=== PATIENT | male | born 1960 | race Caucasian/White ===

== ENCOUNTER 2017-06-27 20:49 | Inpatient (IN) | payer OTHER ==
[~2017-06-27] VITALS: Ht 180.3 cm; Wt 92.6 kg
[2017-06-27] MEDS ORDERED: SODIUM CHLORIDE 0.9% 1,000 ML IV ONE (21:32)
[2017-06-27] MEDS ORDERED: PANTOPRAZOLE 80 MG in SODIUM CHLORIDE 0.9% 50 ML IVPB ONE (21:32)
[2017-06-27] MEDS ORDERED: PANTOPRAZOLE 80 MG in SODIUM CHLORIDE 0.9% 100 ML IV SCH (21:32)
[2017-06-27] MEDS ORDERED: SODIUM CHLORIDE FLUSH 10ML SYR IVF ONE (22:00)
[2017-06-27] MEDS ORDERED: SODIUM CHLORIDE 0.9% 1,000ML IVBOLUS ONE (22:00)
[2017-06-27 22:08] LABS: INTERNATIONAL NORMALIZED RATIO 1.42 (0.93-1.1); PROTHROMBIN TIME 14.5 Seconds (9.6-11.5)
[2017-06-27 22:09] LABS: ALANINE AMINOTRANSFERASE 66 U/L (12-78); ALBUMIN 2.4 g/dL (3.4-5.0); ANION GAP 7 mmol/L (5-15); CALCIUM 7.6 mg/dL (8.5-10.1); CHLORIDE 117 mmol/L (98-107)
[2017-06-27 22:12] LABS: ALKALINE PHOSPHATASE 42 U/L (45-117); BILIRUBIN,TOTAL 0.9 mg/dL (0.2-1.0); TOTAL PROTEIN 5.2 g/dL (6.4-8.2)
[2017-06-27 22:51] LABS: MEAN CORPUSCULAR HEMOGLOBIN 23.7 pg (27.5-34.5); MEAN CORPUSCULAR HGB CONC 31.3 g/dL (33.2-36.2); MEAN CORPUSCULAR VOLUME 75.7 fL (81-97); MEAN PLATELET VOLUME 11.1 fL (7.4-10.4); PLATELET COUNT 143 x10^3/uL (130-400); RED BLOOD COUNT 1.73 x10^6/uL (4.38-5.82); RED CELL DISTRIBUTION WIDTH 20.3 % (9.4-14.8)
[2017-06-27] MEDS ORDERED: OCTREOTIDE 500 MCG in SODIUM CHLORIDE 0.9% 249 ML IV PRN (23:13)
[2017-06-27 23:18] LABS: MD YES
[2017-06-27 23:27] LABS: BAND#(MANUAL) 0.09 x10^3/uL; BANDS%(MANUAL) 1 % (0-7); BASOS#(MANUAL) 0.09 x10^3/uL (0-0.1); BASOS% (MANUAL) 1 % (0-1); EOS#(MANUAL) 0.17 x10^3/uL (0.0-0.4); EOS% (MANUAL) 2 % (1-7); LYMPH#(MANUAL) 1.38 x10^3/uL (1-3.4); LYMPHS% (MANUAL) 16 % (22-44); METAMYELOCYTES# (MANUAL) 0.09 x10^3/uL (0-0); METAMYELOCYTES% (MANUAL) 1 % (0-1); MONOS#(MANUAL) 0.17 x10^3/uL (0.3-2.7); MONOS% (MANUAL) 2 % (2-9); SEG#(MANUAL) 6.36 x10^3/uL (1.8-6.8); SEGS% (MANUAL) 74 % (42-75)
[2017-06-27 23:29] LABS: OTHER CELLS # (MANUAL) 0.26 x10^3/uL (0-0); OTHER CELLS % (MANUAL) 3 % (0-0)
[2017-06-27 23:30] LABS: ANISOCYTOSIS 1+
[2017-06-27] MEDS ORDERED: OCTREOTIDE 100MCG/ML, 1ML (0.1MG/ML) IV ONE (23:30)
[2017-06-27] MEDS ORDERED: SODIUM CHLORIDE FLUSH 10ML SYR IVF PRN (23:30)
[2017-06-27 23:31] LABS: HYPOCHROMIA 1+; MICROCYTOSIS 1+; POLYCHROMASIA 1+
[2017-06-27 23:33] LABS: <PLATELET ESTIMATE> ADEQUATE; OVALOCYTES 1+
[2017-06-27 23:34] LABS: LARGE PLATELETS 1+
[2017-06-27] MEDS: PANTOPRAZOLE 80 MG in SODIUM CHLORIDE 0.9% 100 ML IV SCH (23:48)
[2017-06-28] VITALS (32 sets, daily range): BP systolic 87–144; BP diastolic 47–85
[2017-06-28] MEDS ORDERED: DOCUSATE 100 MG CAPSULE PO PRN
[2017-06-28] MEDS ORDERED: OXYcodone IR 5MG TABLET PO PRN
[2017-06-28] MEDS ORDERED: hydrALAzine 20 MG/ML, 1ML IVPush PRN
[2017-06-28] MEDS ORDERED: ONDANSETRON ODT 4 MG PO PRN
[2017-06-28] MEDS ORDERED: PROMETHAZINE 25 MG/ML, 1ML IM PRN
[2017-06-28] MEDS ORDERED: D5%-0.9% NACL+KCL 20MEQ 1,000 ML IV SCH
[2017-06-28] MEDS ORDERED: morphine SULFATE 10 MG/ML, 1ML IVPush PRN
[2017-06-28] MEDS ORDERED: POLYETHYLENE GLYCOL 17 GM PACKET PO PRN
[2017-06-28] MEDS: OCTREOTIDE 500 MCG in SODIUM CHLORIDE 0.9% 249 ML IV PRN ×3 (00:03→20:32)
[2017-06-28 00:10] LABS: FREE T4 (FREE THYROXINE) 1.36 ng/dL (0.76-1.46); THYROID STIMULATING HORMONE 3.9 mIU/L (0.358-3.740)
[2017-06-28] MEDS ORDERED: ALBUTEROL SULFATE 2.5 MG/3 ML NPPB PRN (01:30)
[2017-06-28 06:21] LABS: MICROSCOPIC NOT IND
[2017-06-28 06:31] LABS: CULTURE INDICATED? NO
[2017-06-28 07:38] LABS: ALANINE AMINOTRANSFERASE 56 U/L (12-78); ALBUMIN 2.1 g/dL (3.4-5.0); ANION GAP 7 mmol/L (5-15); CALCIUM 7.1 mg/dL (8.5-10.1); CHLORIDE 118 mmol/L (98-107); CREATININE 0.97 mg/dL (0.7-1.3)
[2017-06-28 07:40] LABS: ALKALINE PHOSPHATASE 37 U/L (45-117); BILIRUBIN,TOTAL 2.1 mg/dL (0.2-1.0); HDL CHOLESTEROL (DIRECT) 18 mg/dL (40-60); TOTAL PROTEIN 4.5 g/dL (6.4-8.2); TRIGLYCERIDES 37 mg/dL (50-200); VLDL CHOLESTEROL 7 mg/dL (0-25)
[2017-06-28 08:15] LABS: CHOL/HDL RATIO 2.8; HDL CHOL % 0 % (26-37); LDL CHOLESTEROL,CALCULATED 25 mg/dL (54-169); LDL/HDL RATIO 1.4 (0.5-3.0)
[2017-06-28 08:16] LABS: CHOLESTEROL, TOTAL < 50 mg/dL (140-239)
[2017-06-28 08:20] LABS: MEAN CORPUSCULAR HEMOGLOBIN 26.5 pg (27.5-34.5); MEAN CORPUSCULAR HGB CONC 32.8 g/dL (33.2-36.2); MEAN CORPUSCULAR VOLUME 80.9 fL (81-97); MEAN PLATELET VOLUME 9.9 fL (7.4-10.4); PLATELET COUNT 81 x10^3/uL (130-400); RED BLOOD COUNT 2.17 x10^6/uL (4.38-5.82); RED CELL DISTRIBUTION WIDTH 20.2 % (9.4-14.8)
[2017-06-28 08:25] LABS: MD YES
[2017-06-28 08:43] LABS: EOS#(MANUAL) 0.19 x10^3/uL (0.0-0.4); EOS% (MANUAL) 2 % (1-7); LYMPHS% (MANUAL) 17 % (22-44); MONOS#(MANUAL) 0.85 x10^3/uL (0.3-2.7); MONOS% (MANUAL) 9 % (2-9); SEG#(MANUAL) 6.77 x10^3/uL (1.8-6.8); SEGS% (MANUAL) 72 % (42-75)
[2017-06-28 08:44] LABS: <PLATELET ESTIMATE> DECREASED; <PLT MORPHOLOGY> NORMAL PLT MORPH; ANISOCYTOSIS 1+; HYPOCHROMIA 1+; MICROCYTOSIS 1+; POLYCHROMASIA 1+; SCHISTOCYTES 1+
[2017-06-28 08:45] LABS: OVALOCYTES 1+
[2017-06-28] MEDS ORDERED: CEFTRIAXONE PMX 2GM/50ML 50 ML IV SCH (09:30)
[2017-06-28] MEDS ORDERED: ERYTHROMYCIN 250 MG in SODIUM CHLORIDE 0.9% 100 ML IV ONE (10:00)
[2017-06-28] MEDS ORDERED: PHYTONADIONE 10 MG/ML, 1ML SQ SCH (10:00)
[2017-06-28] MEDS ORDERED: ERYTHROMYCIN BASE 250 MG TABLET PO ONE (10:00)
[2017-06-28] MEDS ORDERED: PANTOPRAZOLE 80 MG in SODIUM CHLORIDE 0.9% 100 ML IV SCH (11:30)
[2017-06-28] MEDS ORDERED: FENTANYL PF 100 MCG/2ML ONE ×2 (12:23→13:11)
[2017-06-28] MEDS ORDERED: KETAMINE 10 MG/ML, 20ML ONE (12:23)
[2017-06-28] MEDS ORDERED: PHENYLEPHRINE 10 MG/ML ONE ×2 (12:35)
[2017-06-28] MEDS ORDERED: PROPOFOL 10 MG/ML, 20ML ONE (12:35)
[2017-06-28] MEDS ORDERED: ALBUTEROL SULFATE 200 PUFFS/8.5 GR INH ONE (12:35)
[2017-06-28 13:51] LABS: INTERNATIONAL NORMALIZED RATIO 1.49 (0.93-1.1); PROTHROMBIN TIME 15.2 Seconds (9.6-11.5)
[2017-06-28 13:52] LABS: ANION GAP 6 mmol/L (5-15); CALCIUM 6.9 mg/dL (8.5-10.1); CHLORIDE 119 mmol/L (98-107); CREATININE 0.91 mg/dL (0.7-1.3)
[2017-06-28] MEDS: PROPOFOL 100 ML IV PRN ×3 (14:00→23:35)
[2017-06-28 14:01] LABS: MEAN CORPUSCULAR HEMOGLOBIN 27.9 pg (27.5-34.5); MEAN CORPUSCULAR HGB CONC 33.1 g/dL (33.2-36.2); MEAN CORPUSCULAR VOLUME 84.3 fL (81-97); RED BLOOD COUNT 2.17 x10^6/uL (4.38-5.82); RED CELL DISTRIBUTION WIDTH 18.8 % (9.4-14.8)
[2017-06-28] MEDS ORDERED: PROPOFOL 100 ML IV ONE (14:03)
[2017-06-28 14:07] LABS: MEAN PLATELET VOLUME 8.8 fL (7.4-10.4); PLATELET COUNT 206 x10^3/uL (130-400)
[2017-06-28 14:09] LABS: MD YES
[2017-06-28 14:11] LABS: EOS#(MANUAL) 0.56 x10^3/uL (0.0-0.4); EOS% (MANUAL) 3 % (1-7); LYMPH#(MANUAL) 1.69 x10^3/uL (1-3.4); LYMPHS% (MANUAL) 9 % (22-44); MONOS#(MANUAL) 1.69 x10^3/uL (0.3-2.7); MONOS% (MANUAL) 9 % (2-9); SEG#(MANUAL) 14.85 x10^3/uL (1.8-6.8); SEGS% (MANUAL) 79 % (42-75)
[2017-06-28 14:12] LABS: ANISOCYTOSIS 1+
[2017-06-28 14:13] LABS: HYPOCHROMIA 1+; MICROCYTOSIS 1+; OVALOCYTES 1+; POLYCHROMASIA 1+
[2017-06-28 14:14] LABS: <PLATELET ESTIMATE> ADEQUATE; <PLT MORPHOLOGY> NORMAL PLT MORPH
[2017-06-28 14:29] LABS: FOLATE LEVEL 18.4 ng/mL (3.1-17.5)
[2017-06-28] MEDS ORDERED: PHENYLEPHRINE 10 MG in SODIUM CHLORIDE 0.9% 249 ML IV PRN ×2 (14:30→15:48)
[2017-06-28] MEDS: CEFTRIAXONE 2 GM in DEXTROSE 5% 50 ML IV SCH (15:00)
[2017-06-28] MEDS ORDERED: LIDOCAINE-MPF 1%, 5ML ONE (15:45)
[2017-06-28] MEDS ORDERED: SODIUM CHLORIDE 0.9% 1,000ML IVBOLUS ONE (16:00)
[2017-06-28] MEDS ORDERED: SENNOSIDES 8.8 MG/5 ML ORAL SOL NG PRN (16:00)
[2017-06-28] MEDS ORDERED: LACTULOSE 20 GM/30 ML UDC NG PRN (16:00)
[2017-06-28] MEDS ORDERED: BISACODYL 10 MG SUPP PR PRN (16:00)
[2017-06-28] MEDS ORDERED: PHARMACY MAY ADJ FOR RENAL FX MC SCH (16:00)
[2017-06-28] MEDS ORDERED: FENTANYL PF 100 MCG/2ML IVPush PRN (16:00)
[2017-06-28] MEDS ORDERED: SENNA/DOCUSATE TABLET NG PRN (16:00)
[2017-06-28] MEDS ORDERED: LIDOCAINE-MPF 1%, 2ML ENDO PRN (16:00)
[2017-06-28 18:54] LABS: MEAN CORPUSCULAR HEMOGLOBIN 28.5 pg (27.5-34.5); MEAN CORPUSCULAR HGB CONC 33.3 g/dL (33.2-36.2); MEAN CORPUSCULAR VOLUME 85.5 fL (81-97); MEAN PLATELET VOLUME 10.2 fL (7.4-10.4); PLATELET COUNT 122 x10^3/uL (130-400); RED BLOOD COUNT 2.88 x10^6/uL (4.38-5.82); RED CELL DISTRIBUTION WIDTH 17.6 % (9.4-14.8)
[2017-06-28] MEDS: ALBUTEROL/IPRATROPIUM 2.5MG/0.5MG, 3 ML INLINE SCH ×2 (19:35→22:28)
[2017-06-28] MEDS: PANTOPRAZOLE 80 MG in SODIUM CHLORIDE 0.9% 100 ML IV SCH (22:01)
[2017-06-28] MEDS ORDERED: OCTREOTIDE 500 MCG in SODIUM CHLORIDE 0.9% 249 ML IV PRN (23:13)
[2017-06-28 23:58] LABS: MEAN CORPUSCULAR HEMOGLOBIN 28.2 pg (27.5-34.5); MEAN CORPUSCULAR HGB CONC 33.1 g/dL (33.2-36.2); MEAN CORPUSCULAR VOLUME 85.4 fL (81-97); RED BLOOD COUNT 2.57 x10^6/uL (4.38-5.82); RED CELL DISTRIBUTION WIDTH 17.7 % (9.4-14.8)
[2017-06-29] VITALS (8 sets, daily range): BP systolic 107–134; BP diastolic 58–71
[2017-06-29 00:15] LABS: MEAN PLATELET VOLUME 10.1 fL (7.4-10.4); PLATELET COUNT 90 x10^3/uL (130-400)
[2017-06-29] MEDS: ALBUTEROL/IPRATROPIUM 2.5MG/0.5MG, 3 ML INLINE SCH ×3 (03:45→10:31)
[2017-06-29 04:45] LABS: MEAN CORPUSCULAR HEMOGLOBIN 28.5 pg (27.5-34.5); MEAN CORPUSCULAR HGB CONC 33.6 g/dL (33.2-36.2); PLATELET COUNT 79 x10^3/uL (130-400); RED BLOOD COUNT 2.37 x10^6/uL (4.38-5.82); RED CELL DISTRIBUTION WIDTH 17.6 % (9.4-14.8)
[2017-06-29 04:53] LABS: INTERNATIONAL NORMALIZED RATIO 1.35 (0.93-1.1); PROTHROMBIN TIME 13.8 Seconds (9.6-11.5)
[2017-06-29 04:54] LABS: ALBUMIN 2.3 g/dL (3.4-5.0); ANION GAP 7 mmol/L (5-15); CALCIUM 6.8 mg/dL (8.5-10.1); CHLORIDE 117 mmol/L (98-107)
[2017-06-29 04:56] LABS: ALANINE AMINOTRANSFERASE 42 U/L (12-78); ALKALINE PHOSPHATASE 42 U/L (45-117); BILIRUBIN,TOTAL 0.8 mg/dL (0.2-1.0); TOTAL PROTEIN 4.7 g/dL (6.4-8.2)
[2017-06-29] MEDS: PROPOFOL 100 ML IV PRN ×4 (05:00→20:02)
[2017-06-29] MEDS ORDERED: MAGNESIUM SULFATE PMX 2GM/50ML 50 ML IV ONE ×2 (05:30→07:30)
[2017-06-29 05:41] LABS: BASOPHILS # (AUTO) 0.02 x10^3/uL (0-0.1); BASOPHILS % (AUTO) 0 % (0-1); EOSINOPHILS % (AUTO) 3 % (1-7); LYMPHOCYTES # (AUTO) 1.06 x10^3/uL (1-3.4); LYMPHOCYTES % (AUTO) 16 % (22-44); MD SCAN; MONOCYTES % (AUTO) 11 % (2-9); NEUTROPHILS # (AUTO) 4.66 x10^3/uL (1.8-6.8); NEUTROPHILS % (AUTO) 70 % (42-75)
[2017-06-29] MEDS: OCTREOTIDE 500 MCG in SODIUM CHLORIDE 0.9% 249 ML IV PRN ×2 (05:49→14:53)
[2017-06-29] MEDS: PANTOPRAZOLE 80 MG in SODIUM CHLORIDE 0.9% 100 ML IV SCH ×2 (08:21→19:36)
[2017-06-29] MEDS ORDERED: PHYTONADIONE 10 MG in SODIUM CHLORIDE 0.9% 50 ML IV SCH (09:30)
[2017-06-29 10:45] LABS: MEAN CORPUSCULAR HEMOGLOBIN 27.8 pg (27.5-34.5); MEAN CORPUSCULAR HGB CONC 32.9 g/dL (33.2-36.2); MEAN CORPUSCULAR VOLUME 84.3 fL (81-97); MEAN PLATELET VOLUME 10.4 fL (7.4-10.4); PLATELET COUNT 75 x10^3/uL (130-400); RED BLOOD COUNT 3.11 x10^6/uL (4.38-5.82); RED CELL DISTRIBUTION WIDTH 16.5 % (9.4-14.8)
[2017-06-29 11:07] LABS: BASOPHILS # (AUTO) 0.01 x10^3/uL (0-0.1); BASOPHILS % (AUTO) 0 % (0-1); EOSINOPHILS # (AUTO) 0.26 x10^3/uL (0-0.4); EOSINOPHILS % (AUTO) 4 % (1-7); LYMPHOCYTES # (AUTO) 1.26 x10^3/uL (1-3.4); LYMPHOCYTES % (AUTO) 20 % (22-44); MD MORPH REVIEW ONLY; MONOCYTES % (AUTO) 11 % (2-9); NEUTROPHILS # (AUTO) 4.19 x10^3/uL (1.8-6.8); NEUTROPHILS % (AUTO) 65 % (42-75)
[2017-06-29 11:10] LABS: ANISOCYTOSIS 1+; POLYCHROMASIA 1+; TARGET CELLS 1+
[2017-06-29 11:11] LABS: <PLATELET ESTIMATE> DECREASED; <PLT MORPHOLOGY> NORMAL PLT MORPH
[2017-06-29] MEDS ORDERED: SODIUM CHLORIDE 0.9%, 500ML IVBOLUS ONE (14:00)
[2017-06-29 14:25] LABS: MEAN CORPUSCULAR HEMOGLOBIN 27.9 pg (27.5-34.5); MEAN CORPUSCULAR VOLUME 84.4 fL (81-97); PLATELET COUNT 72 x10^3/uL (130-400); RED BLOOD COUNT 3.05 x10^6/uL (4.38-5.82); RED CELL DISTRIBUTION WIDTH 17.1 % (9.4-14.8)
[2017-06-29] MEDS: CEFTRIAXONE 2 GM in DEXTROSE 5% 50 ML IV SCH (14:52)
[2017-06-29] MEDS: ALBUTEROL/IPRATROPIUM 2.5MG/0.5MG, 3 ML NPPB SCH ×4 (18:00→22:30)
[2017-06-29 18:19] LABS: MEAN CORPUSCULAR HEMOGLOBIN 28.4 pg (27.5-34.5); MEAN CORPUSCULAR HGB CONC 33.3 g/dL (33.2-36.2); MEAN CORPUSCULAR VOLUME 85.3 fL (81-97); MEAN PLATELET VOLUME 9.8 fL (7.4-10.4); PLATELET COUNT 72 x10^3/uL (130-400); RED BLOOD COUNT 3.04 x10^6/uL (4.38-5.82); RED CELL DISTRIBUTION WIDTH 17.4 % (9.4-14.8)
[2017-06-30] MEDS: PROPOFOL 100 ML IV PRN ×2 (00:33→05:32)
[2017-06-30] MEDS: OCTREOTIDE 500 MCG in SODIUM CHLORIDE 0.9% 249 ML IV PRN (01:20)
[2017-06-30] MEDS: ALBUTEROL/IPRATROPIUM 2.5MG/0.5MG, 3 ML NPPB SCH ×9 (02:00→21:05)
[2017-06-30 03:01] LABS: MEAN CORPUSCULAR HEMOGLOBIN 27.8 pg (27.5-34.5); MEAN CORPUSCULAR VOLUME 84.3 fL (81-97); MEAN PLATELET VOLUME 10.2 fL (7.4-10.4); PLATELET COUNT 70 x10^3/uL (130-400); RED BLOOD COUNT 2.97 x10^6/uL (4.38-5.82); RED CELL DISTRIBUTION WIDTH 17.6 % (9.4-14.8)
[2017-06-30 03:07] LABS: ANION GAP 7 mmol/L (5-15); CALCIUM 6.8 mg/dL (8.5-10.1); CHLORIDE 119 mmol/L (98-107); CREATININE 0.78 mg/dL (0.7-1.3)
[2017-06-30 03:33] LABS: BASOPHILS # (AUTO) 0.01 x10^3/uL (0-0.1); BASOPHILS % (AUTO) 0 % (0-1); EOSINOPHILS # (AUTO) 0.22 x10^3/uL (0-0.4); EOSINOPHILS % (AUTO) 5 % (1-7); LYMPHOCYTES # (AUTO) 0.84 x10^3/uL (1-3.4); LYMPHOCYTES % (AUTO) 19 % (22-44); MD MORPH REVIEW ONLY; MONOCYTES # (AUTO) 0.42 x10^3/uL (0.2-0.8); MONOCYTES % (AUTO) 10 % (2-9); NEUTROPHILS # (AUTO) 2.91 x10^3/uL (1.8-6.8); NEUTROPHILS % (AUTO) 66 % (42-75)
[2017-06-30 03:37] LABS: ANISOCYTOSIS 1+; POLYCHROMASIA 1+
[2017-06-30 03:40] LABS: <PLATELET ESTIMATE> DECREASED; LARGE PLATELETS 1+
[2017-06-30] MEDS: PANTOPRAZOLE 80 MG in SODIUM CHLORIDE 0.9% 100 ML IV SCH (05:31)
[2017-06-30] MEDS ORDERED: POTASSIUM CHLORIDE 40 MEQ in SODIUM CHLORIDE 0.9% 100 ML IV ONE (08:30)
[2017-06-30] MEDS ORDERED: POTASSIUM CHLORIDE 10% 40 MEQ/30 ML UDC PO SCH (09:00)
[2017-06-30] MEDS ORDERED: [UNRECOGNIZED DRUG - REMARK] MC PRN (09:30)
[2017-06-30] MEDS ORDERED: DEXTROSE 5% IV SCH (09:30)
[2017-06-30] MEDS: PHYTONADIONE 10 MG in DEXTROSE 5% 50 ML IV SCH (09:30)
[2017-06-30] MEDS ORDERED: DEXTROSE 5% IV PRN ×2 (09:30→11:00)
[2017-06-30] MEDS ORDERED: PANTOPRAZOLE IV SCH (09:30)
[2017-06-30] MEDS ORDERED: D5%-0.2% NACL 1,000 ML IV SCH (09:30)
[2017-06-30] MEDS ORDERED: OCTREOTIDE IV PRN ×2 (09:30→11:00)
[2017-06-30] MEDS ORDERED: DEXTROSE 5% IV ONE (10:00)
[2017-06-30] MEDS ORDERED: CALCIUM GLUCONATE 4.6 MEQ in SODIUM CHLORIDE 0.9% 50 ML IV ONE (10:00)
[2017-06-30] MEDS ORDERED: PHYTONADIONE 10 MG in SODIUM CHLORIDE 0.9% 50 ML IV SCH (10:00)
[2017-06-30] MEDS ORDERED: CALCIUM GLUCONATE IV ONE (10:00)
[2017-06-30] MEDS: METOCLOPRAMIDE 5 MG/ML, 2ML IVPush SCH ×3 (12:36→22:45)
[2017-06-30] MEDS: CEFTRIAXONE 2 GM in DEXTROSE 5% 50 ML IV SCH (15:19)
[2017-06-30] MEDS ORDERED: ALBUTEROL/IPRATROPIUM 2.5MG/0.5MG, 3 ML ONE (17:14)
[2017-06-30] MEDS: ERGOCALCIFEROL 8,000UNIT/ML PO SCH (17:44)
[2017-06-30] MEDS: PANTOPRAZOLE IV SCH (17:44)
[2017-06-30] MEDS: DEXTROSE 5% IV SCH (17:44)
[2017-06-30] MEDS ORDERED: methylPREDNISolone SOD SUCC 40 MG/ML IV SCH (18:00)
[2017-06-30 18:20] LABS: MEAN CORPUSCULAR HEMOGLOBIN 28.5 pg (27.5-34.5); MEAN CORPUSCULAR HGB CONC 33.3 g/dL (33.2-36.2); MEAN CORPUSCULAR VOLUME 85.8 fL (81-97); MEAN PLATELET VOLUME 10.2 fL (7.4-10.4); PLATELET COUNT 74 x10^3/uL (130-400); RED BLOOD COUNT 3.09 x10^6/uL (4.38-5.82); RED CELL DISTRIBUTION WIDTH 17.6 % (9.4-14.8)
[2017-06-30] MEDS: methylPREDNISolone SOD SUCC 40 MG/ML IV SCH (18:50)
[2017-06-30] MEDS ORDERED: FUROSEMIDE 20 MG/2 ML IV ONE (21:00)
[2017-07-01] MEDS ORDERED: ALBUTEROL/IPRATROPIUM 2.5MG/0.5MG, 3 ML ONE (00:44)
[2017-07-01] MEDS: ALBUTEROL/IPRATROPIUM 2.5MG/0.5MG, 3 ML NPPB SCH ×6 (00:52→23:22)
[2017-07-01] MEDS: DEXTROSE 5% IV SCH (02:13)
[2017-07-01] MEDS: methylPREDNISolone SOD SUCC 40 MG/ML IV SCH ×3 (02:13→18:41)
[2017-07-01] MEDS: PANTOPRAZOLE IV SCH (02:13)
[2017-07-01] MEDS: ERGOCALCIFEROL 8,000UNIT/ML PO SCH (03:39)
[2017-07-01] MEDS: METOCLOPRAMIDE 5 MG/ML, 2ML IVPush SCH ×4 (04:11→22:45)
[2017-07-01 04:33] LABS: MEAN CORPUSCULAR HEMOGLOBIN 28.3 pg (27.5-34.5); MEAN CORPUSCULAR HGB CONC 33.2 g/dL (33.2-36.2); MEAN CORPUSCULAR VOLUME 85.4 fL (81-97); MEAN PLATELET VOLUME 10.5 fL (7.4-10.4); PLATELET COUNT 65 x10^3/uL (130-400); RED BLOOD COUNT 2.85 x10^6/uL (4.38-5.82); RED CELL DISTRIBUTION WIDTH 17.6 % (9.4-14.8)
[2017-07-01 04:42] LABS: ANION GAP 6 mmol/L (5-15); CALCIUM 6.8 mg/dL (8.5-10.1); CHLORIDE 113 mmol/L (98-107); CREATININE 0.87 mg/dL (0.7-1.3); TRIGLYCERIDES 33 mg/dL (50-200)
[2017-07-01 05:38] LABS: BASOPHILS % (AUTO) 0 % (0-1); EOSINOPHILS # (AUTO) 0.01 x10^3/uL (0-0.4); EOSINOPHILS % (AUTO) 0 % (1-7); LYMPHOCYTES # (AUTO) 0.26 x10^3/uL (1-3.4); LYMPHOCYTES % (AUTO) 8 % (22-44); MD SCAN; MONOCYTES # (AUTO) 0.09 x10^3/uL (0.2-0.8); MONOCYTES % (AUTO) 3 % (2-9); NEUTROPHILS # (AUTO) 2.83 x10^3/uL (1.8-6.8); NEUTROPHILS % (AUTO) 89 % (42-75)
[2017-07-01] MEDS ORDERED: MAGNESIUM SULFATE PMX 2GM/50ML 50 ML IV ONE (09:00)
[2017-07-01] MEDS: OMEPRAZOLE 20 MG CAPSULE.DR PO SCH ×2 (10:28→21:41)
[2017-07-01] MEDS: PHYTONADIONE 10 MG in DEXTROSE 5% 50 ML IV SCH (10:48)
[2017-07-01] MEDS: FLUTICASONE/VILANTEROL 200-25MCG/INH INH SCH (12:15)
[2017-07-01] MEDS: CEFTRIAXONE 2 GM in DEXTROSE 5% 50 ML IV SCH (14:39)
[2017-07-01 18:00] VITALS: BP 122/65
[2017-07-01 19:30] VITALS: BP 126/68
[2017-07-02 02:01] VITALS: BP 101/54
[2017-07-02] MEDS: methylPREDNISolone SOD SUCC 40 MG/ML IV SCH ×2 (02:58→10:28)
[2017-07-02] MEDS: METOCLOPRAMIDE 5 MG/ML, 2ML IVPush SCH ×4 (04:54→23:27)
[2017-07-02 05:28] LABS: CHLORIDE 110 mmol/L (98-107)
[2017-07-02 05:30] LABS: MEAN CORPUSCULAR HEMOGLOBIN 28.4 pg (27.5-34.5); MEAN CORPUSCULAR HGB CONC 32.8 g/dL (33.2-36.2); MEAN CORPUSCULAR VOLUME 86.6 fL (81-97); RED BLOOD COUNT 2.84 x10^6/uL (4.38-5.82); RED CELL DISTRIBUTION WIDTH 18.3 % (9.4-14.8)
[2017-07-02 05:40] LABS: ALANINE AMINOTRANSFERASE 39 U/L (12-78); ALBUMIN 2.4 g/dL (3.4-5.0); ALKALINE PHOSPHATASE 45 U/L (45-117); ANION GAP 7 mmol/L (5-15); CALCIUM 7.8 mg/dL (8.5-10.1); TOTAL PROTEIN 5.2 g/dL (6.4-8.2)
[2017-07-02] MEDS: ALBUTEROL/IPRATROPIUM 2.5MG/0.5MG, 3 ML NPPB SCH ×3 (06:00→20:41)
[2017-07-02 06:30] LABS: MEAN PLATELET VOLUME 11.3 fL (7.4-10.4); PLATELET COUNT 72 x10^3/uL (130-400)
[2017-07-02 06:32] LABS: BASOPHILS % (AUTO) 0 % (0-1); EOSINOPHILS % (AUTO) 0 % (1-7); LYMPHOCYTES # (AUTO) 0.43 x10^3/uL (1-3.4); LYMPHOCYTES % (AUTO) 7 % (22-44); MD SCAN; MONOCYTES # (AUTO) 0.33 x10^3/uL (0.2-0.8); MONOCYTES % (AUTO) 5 % (2-9); NEUTROPHILS # (AUTO) 5.54 x10^3/uL (1.8-6.8); NEUTROPHILS % (AUTO) 88 % (42-75)
[2017-07-02 06:59] VITALS: BP 122/64
[2017-07-02] MEDS: OMEPRAZOLE 20 MG CAPSULE.DR PO SCH ×2 (10:28→21:08)
[2017-07-02] MEDS: FLUTICASONE/VILANTEROL 200-25MCG/INH INH SCH (10:29)
[2017-07-02] MEDS: CIPROFLOXACIN 500 MG TABLET PO SCH ×2 (12:00→23:31)
[2017-07-02] MEDS ORDERED: CIPROFLOXACIN 250 MG TABLET ONE (12:46)
[2017-07-02 12:58] VITALS: BP 114/57
[2017-07-02] MEDS: FUROSEMIDE 20 MG TABLET PO SCH (14:00)
[2017-07-02] MEDS: SPIRONOLACTONE 50 MG TABLET PO SCH (14:00)
[2017-07-02 18:02] VITALS: BP 126/71
[2017-07-02] MEDS: PROPRANOLOL 20 MG TABLET PO SCH (18:04)
[2017-07-02 18:54] VITALS: BP 117/68
[2017-07-03 00:55] VITALS: BP 135/60
[2017-07-03] MEDS: METOCLOPRAMIDE 5 MG/ML, 2ML IVPush SCH (04:42)
[2017-07-03] MEDS: PROPRANOLOL 20 MG TABLET PO SCH ×2 (05:43→18:23)
[2017-07-03 05:52] LABS: ANION GAP 6 mmol/L (5-15); CALCIUM 7.5 mg/dL (8.5-10.1); CHLORIDE 107 mmol/L (98-107); CREATININE 0.76 mg/dL (0.7-1.3)
[2017-07-03 06:07] LABS: MEAN CORPUSCULAR HEMOGLOBIN 27.9 pg (27.5-34.5); MEAN CORPUSCULAR HGB CONC 32.2 g/dL (33.2-36.2); MEAN CORPUSCULAR VOLUME 86.7 fL (81-97); MEAN PLATELET VOLUME 10.8 fL (7.4-10.4); PLATELET COUNT 105 x10^3/uL (130-400); RED BLOOD COUNT 3.41 x10^6/uL (4.38-5.82); RED CELL DISTRIBUTION WIDTH 18.3 % (9.4-14.8)
[2017-07-03 06:10] LABS: BASOPHILS # (AUTO) 0.05 x10^3/uL (0-0.1); BASOPHILS % (AUTO) 0 % (0-1); EOSINOPHILS # (AUTO) 0.03 x10^3/uL (0-0.4); EOSINOPHILS % (AUTO) 0 % (1-7); LYMPHOCYTES # (AUTO) 1.49 x10^3/uL (1-3.4); LYMPHOCYTES % (AUTO) 12 % (22-44); MD MORPH REVIEW ONLY; MONOCYTES # (AUTO) 1.21 x10^3/uL (0.2-0.8); MONOCYTES % (AUTO) 9 % (2-9); NEUTROPHILS # (AUTO) 10.15 x10^3/uL (1.8-6.8); NEUTROPHILS % (AUTO) 79 % (42-75)
[2017-07-03 06:11] LABS: <PLATELET ESTIMATE> DECREASED; ANISOCYTOSIS 2+; LARGE PLATELETS 1+; MICROCYTOSIS 1+; OVALOCYTES 1+; POLYCHROMASIA 1+
[2017-07-03 06:12] LABS: TEAR DROPS 1+
[2017-07-03] MEDS: ALBUTEROL/IPRATROPIUM 2.5MG/0.5MG, 3 ML NPPB SCH ×3 (07:04→20:08)
[2017-07-03 07:18] VITALS: BP 116/70
[2017-07-03] MEDS: FLUTICASONE/VILANTEROL 200-25MCG/INH INH SCH (08:54)
[2017-07-03] MEDS: FUROSEMIDE 20 MG TABLET PO SCH (08:54)
[2017-07-03] MEDS: OMEPRAZOLE 20 MG CAPSULE.DR PO SCH ×2 (08:54→21:57)
[2017-07-03] MEDS: SPIRONOLACTONE 50 MG TABLET PO SCH (08:54)
[2017-07-03] MEDS: CIPROFLOXACIN 500 MG TABLET PO SCH (12:06)
[2017-07-03 13:15] VITALS: BP 101/64
[2017-07-03 18:44] VITALS: BP 102/64
[2017-07-04] MEDS: CIPROFLOXACIN 500 MG TABLET PO SCH ×2 (00:54→12:22)
[2017-07-04 00:56] VITALS: BP 121/77
[2017-07-04 00:57] VITALS: BP 111/62
[2017-07-04 05:27] LABS: ANION GAP 9 mmol/L (5-15); CALCIUM 7.3 mg/dL (8.5-10.1); CHLORIDE 109 mmol/L (98-107)
[2017-07-04 05:30] LABS: CREATININE 0.83 mg/dL (0.7-1.3); TRIGLYCERIDES 47 mg/dL (50-200)
[2017-07-04 05:37] LABS: MEAN CORPUSCULAR HEMOGLOBIN 28.3 pg (27.5-34.5); MEAN CORPUSCULAR HGB CONC 32.9 g/dL (33.2-36.2); MEAN PLATELET VOLUME 10.9 fL (7.4-10.4); PLATELET COUNT 94 x10^3/uL (130-400); RED BLOOD COUNT 3.49 x10^6/uL (4.38-5.82); RED CELL DISTRIBUTION WIDTH 17.6 % (9.4-14.8)
[2017-07-04 05:58] LABS: BASOPHILS # (AUTO) 0.02 x10^3/uL (0-0.1); BASOPHILS % (AUTO) 0 % (0-1); EOSINOPHILS % (AUTO) 4 % (1-7); LYMPHOCYTES # (AUTO) 1.27 x10^3/uL (1-3.4); LYMPHOCYTES % (AUTO) 18 % (22-44); MD SCAN; MONOCYTES # (AUTO) 0.98 x10^3/uL (0.2-0.8); MONOCYTES % (AUTO) 14 % (2-9); NEUTROPHILS # (AUTO) 4.64 x10^3/uL (1.8-6.8); NEUTROPHILS % (AUTO) 64 % (42-75)
[2017-07-04] MEDS: PROPRANOLOL 20 MG TABLET PO SCH (06:16)
[2017-07-04] MEDS: ALBUTEROL/IPRATROPIUM 2.5MG/0.5MG, 3 ML NPPB SCH ×2 (06:31→13:38)
[2017-07-04 06:58] VITALS: BP 98/50
[2017-07-04] MEDS: SPIRONOLACTONE 50 MG TABLET PO SCH (08:45)
[2017-07-04] MEDS: OMEPRAZOLE 20 MG CAPSULE.DR PO SCH (08:45)
[2017-07-04] MEDS: FUROSEMIDE 20 MG TABLET PO SCH (08:45)
[2017-07-04] MEDS: FLUTICASONE/VILANTEROL 200-25MCG/INH INH SCH (08:50)
[2017-07-04] MEDS ORDERED: SPIR50TA PO (12:34)
[2017-07-04] MEDS ORDERED: FLUT1BLS INH (12:34)
[2017-07-04] MEDS ORDERED: ERGO80004 PO (12:34)
[2017-07-04] MEDS ORDERED: OMEP-110 PO (12:34)
[2017-07-04] MEDS ORDERED: FURO20TA3 PO (12:34)
[2017-07-04] MEDS ORDERED: PROP20TA PO (12:34)
[2017-07-04 12:54] VITALS: BP 94/51
[2017-07-04] MEDS ORDERED: ALBU18HF INH (13:12)
== END 2017-07-04 16:15 | disposition home or self-care (01) | DRG 208 ==
LOC: ED 22:55 → EDIP 23:30 → 4WST 06-28 00:28 → CCU 06-28 13:57 → 4EST 07-01 17:46 → DCLOUNGE 07-04 15:45
PROVIDERS: ADMIT Internal Medicine; ATTEND Internal Medicine
PROC: 5A1945Z Respiratory Ventilation, 24-96 Consecutive Hours (ICD-10-PCS; 2017-06-28)
PROC: 30233N1 Transfusion of Nonautologous Red Blood Cells into Peripheral Vein, Percutaneous Approach (ICD-10-PCS; 2017-06-28)
PROC: 30233K1 Transfusion of Nonautologous Frozen Plasma into Peripheral Vein, Percutaneous Approach (ICD-10-PCS; 2017-06-28)
PROC: 30233R1 Transfusion of Nonautologous Platelets into Peripheral Vein, Percutaneous Approach (ICD-10-PCS; 2017-06-28)
PROC: 02HV33Z Insertion of Infusion Device into Superior Vena Cava, Percutaneous Approach (ICD-10-PCS; 2017-06-28)
PROC: B548ZZA Ultrasonography of Superior Vena Cava, Guidance (ICD-10-PCS; 2017-06-28)
PROC: 0BH17EZ Insertion of Endotracheal Airway into Trachea, Via Natural or Artificial Opening (ICD-10-PCS; 2017-06-28)
PROC: 06L38CZ Occlusion of Esophageal Vein with Extraluminal Device, Via Natural or Artificial Opening Endoscopic (ICD-10-PCS; principal; 2017-06-28 14:00)
PROC: 0W9G3ZZ Drainage of Peritoneal Cavity, Percutaneous Approach (ICD-10-PCS; 2017-07-03)
DX: J96.00 Acute respiratory failure, unspecified whether with hypoxia or hypercapnia (principal); I85.01 Esophageal varices with bleeding; E43 Unspecified severe protein-calorie malnutrition; G93.41 Metabolic encephalopathy; Z99.11 Dependence on respirator [ventilator] status; D68.9 Coagulation defect, unspecified; D69.6 Thrombocytopenia, unspecified; K56.7 Ileus, unspecified; E87.0 Hyperosmolality and hypernatremia; D62 Acute posthemorrhagic anemia; E87.2 Acidosis; K76.6 Portal hypertension; R18.8 Other ascites; B18.2 Chronic viral hepatitis C; E87.5 Hyperkalemia; F10.21 Alcohol dependence, in remission; J45.909 Unspecified asthma, uncomplicated; K31.89 Other diseases of stomach and duodenum; K74.60 Unspecified cirrhosis of liver; Z68.28 Body mass index [BMI] 28.0-28.9, adult
CPT/HCPCS: 36415; 36430; 36569; 36600; 49083; 71045; 74018; 76700; 76937; 77001; 80048; 80053; 80061; 81003; 82042; 82107; 82140; 82306; 82607; 82728; 82746; 82803; 83036; 83540; 83550; 83605; 83690; 83735; 83970; 84100; 84157; 84425; 84439; 84443; 84478; 85014; 85018; 85025; 85027; 85610; 85730; 86704; 86706; 86850; 86870; 86900; 86922; 86923; 87070; 87081; 87107; 87205; 87340; 87522; 87806; 87902; 88112; 89051; 94002; 94003; 94640; 96365; 96372; J0610; J2354; J2550; J2704; J3010; J3430; J3480; J7070; J7620; C1751; C9113; G0475; J1940; J2370; J2765; J2920; J3475; J7030; J7040; J7050; P9016; P9017; P9035